=== PATIENT | male | born 1985 | race Caucasian/White ===

== ENCOUNTER 2020-02-17 12:52 | Emergency (ER) | payer OTHER ==
[~2020-02-17] VITALS: Ht 177.8 cm; Wt 86.2 kg
[2020-02-17 13:14] VITALS: BP 122/70
--- NOTE | 2020-02-17 13:14 | NUR ---
ED Nurse Note: PT walked in to ED for C/P ABD pain since this morning. Denies any N/V/D.
--- NOTE | 2020-02-17 13:35 | NUR ---
ED Nurse Note: PT taken to CT
[2020-02-17] MEDS ORDERED: Omnipaque-300 100ml vial INJ PRN (13:45)
--- NOTE | 2020-02-17 13:55 | NUR ---
ED Nurse Note: urine and blood sample sent to lab
[2020-02-17 14:12] LABS: BILIRUBIN, URINE NEGATIVE (NEGATIVE); COLOR,URINE PALE YELLOW; GLUCOSE, URINE (UA) NEGATIVE (NEGATIVE); KETONES,URINE 1+ (NEGATIVE); LEUKOCYTE ESTERASE ,URINE NEGATIVE (NEGATIVE); NITRITE,URINE NEGATIVE (NEGATIVE); PH,URINE 7 (4.5-8.0); PROTEIN,URINE NEGATIVE (NEGATIVE); UROBILINOGEN,URINE NORMAL MG/DL (0.0-1.0)
[2020-02-17 14:13] LABS: APPEARANCE,URINE CLEAR
[2020-02-17 14:23] LABS: ANION GAP 14 mmol/L (5-15); BLOOD UREA NITROGEN 15 mg/dL (7-18); CALCIUM 9.5 MG/DL (8.5-10.1); CARBON DIOXIDE 25 MMOL/L (21-32); CHLORIDE 104 MMOL/L (98-107); POTASSIUM 3.5 MMOL/L (3.5-5.1); SODIUM 143 MMOL/L (136-145)
[2020-02-17 14:28] LABS: ALANINE AMINOTRANSFERASE 45 U/L (12-78); ALBUMIN 4.5 G/DL (3.4-5.0); ALBUMIN/GLOBULIN RATIO 1.5 (1.0-2.7); ALKALINE PHOSPHATASE 50 U/L (46-116); ASPARTATE AMINO TRANSFERASE 36 U/L (15-37); CREATINE KINASE 334 U/L (26-308)
[2020-02-17 14:37] LABS: HEMATOCRIT 41.7 % (42.0-52.0); HEMOGLOBIN 15.5 G/DL (14.2-18.0); MEAN CORPUSCULAR VOLUME 88 FL (80-99); PLATELET COUNT 324 K/UL (150-450); RED BLOOD COUNT 4.75 M/UL (4.70-6.10); WHITE BLOOD COUNT 14.6 K/UL (4.8-10.8)
--- NOTE | 2020-02-17 14:50 | NUR ---
ED Nurse Note: back from CT
--- NOTE | 2020-02-17 15:38 | Diagnostic Imaging Report ---
Clinical Indication: Abdominal pain since this morning Technique: No oral contrast utilized, per emergency room physician request IV administration nonionic contrast. Venous phase spiral acquisition obtained through the abdomen and pelvis. Multiplanar reconstructions were generated. Total dose length product 258 mGycm. CTDIvol(s) 5 mGy. Dose reduction achieved using automated exposure control Comparison: none Findings: Lack of enteric contrast limits assessment of the GI tract. Lack of body fat also limits inherent soft tissue contrast. There is a suggestion of a mildly enlarged appendix posterior to the cecum and immediately up against it. No extraluminal gas or fluid demonstrated. This is best appreciated on images 54 through 62 of series 4, particularly on image 56 The distal esophagus, stomach, duodenum are unremarkable. No small bowel distention. No free or loculated intraperitoneal gas or fluid is evident. No evidence of colonic diverticulosis or diverticulitis. The liver, gallbladder, bile ducts, pancreas, spleen, adrenals, kidneys are all unremarkable. No pelvic mass or adenopathy. No retroperitoneal or mesenteric mass or adenopathy. 2 calcifications versus dense material and bowel are seen in the right side of the pelvis. Included lung bases are clear. The bones are unremarkable. Impression: Equivocal mildly enlarged appendix, not well-demonstrated, could indicate early appendicitis. Correlate with clinical findings. No other acute or significant abnormality demonstrated. Findings discussed by phone with nurse practitioner Julia in the emergency room at the time of interpretation. The CT scanner at [facility] is accredited by the [employer] and the scans are performed using protocols designed to limit radiation exposure to as low as reasonably achievable to attain images of sufficient resolution adequate for diagnostic evaluation.
--- NOTE | 2020-02-17 15:43 | Emergency Room Report ---
History of Present Illness General Chief Complaint: Abdominal Pain Source: Patient Present Illness HPI 34-year-old male with no significant past medical history, non-smoker, no drug use, and nonalcoholic here complaining of sudden onset of mid to right lower quadrant abdominal pain that started this morning. At this time he rates it 7 out of 10 and intermittent. Denies any radiation. Denies any diffuse abdominal pain, nausea vomiting, diarrhea, constipation, fever and chills, chest pain shortness of breath. 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 Allergies: Coded Allergies: No Known Allergies (Unverified , 02/17/20) COVID-19 Screening Contact w/high risk pt: No Recent Travel to affected area: No Experienced COVID-19 symptoms?: No Patient History Past Medical History: see triage record Past Surgical History: none Pertinent Family History: none Immunizations: UTD Reviewed Nursing Documentation: PMH: Agreed; PSxH: Agreed Nursing Documentation-PMH Hx Asthma: Yes Review of Systems All Other Systems: negative except mentioned in HPI Physical Exam Vital Signs Date Time Temp Pulse Resp B/P (MAP) Pulse Ox O2 Delivery O2 Flow Rate FiO2 02/17/20 13:07 98.1 86 19 131/76 (94) 96 Room Air Sp02 EP Interpretation: reviewed, normal General Appearance: no apparent distress, alert, GCS 15, non-toxic Head: normocephalic, atraumatic Eyes: bilateral eye normal inspection, bilateral eye PERRL ENT: hearing grossly normal, normal pharynx, no angioedema, normal voice Neck: full range of motion, supple/symm/no masses Respiratory: chest non-tender, lungs clear, normal breath sounds, no rhonchi, no retraction, speaking full sentences Cardiovascular #1: regular rate, rhythm, no edema, no murmur Gastrointestinal: non tender, soft, no mass, no bruit, non-distended, no guarding Rectal: deferred Genitourinary: no CVA tenderness Musculoskeletal: back normal Neurologic: alert, motor strength/tone normal, oriented x3, sensory intact, responsive, speech normal Psychiatric: judgement/insight normal, memory normal, mood/affect normal, no suicidal/homicidal ideation Skin: no rash Lymphatic: no adenopathy Medical Decision Making PA Attestation All diagnoses and treatment plans were reviewed and discussed with my supervising physician Dr. Carcamo Diagnostic Impression: Primary Impression: Appendicitis Additional Impression: Left against medical advice ER Course 34-year-old male with no significant past medical history, non-smoker, no drug use, and nonalcoholic here complaining of sudden onset of mid to right lower quadrant abdominal pain that started this morning. At this time he rates it 7 out of 10 and intermittent. Denies any radiation. Denies any diffuse abdominal pain, nausea vomiting, diarrhea, constipation, fever and chills, chest pain shortness of breath. 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 Ddx considered but are not limited to: appendicitis, cholecystis, gastritis, gastroenteritis, UTI, pyelonephritis, SBO, diverticulitis, influenza with GI manifestation, Vital signs: are WNL, pt. is afebrile H&PE are most consistent with: Appendicitis ORDERS: abdominal CT, abdominal pain set, ED INTERVENTIONS: Zosyn, NS bolus, Patient was to be admitted however patient decided to sign AGAINST MEDICAL ADVICE and go to [facility] for admission and surgery. Patient agreed for antibiotic treatment. Reported that he understands the risk of possible rupture however will drive himself immediately to [facility]. Patient has full judgment upon signing AGAINST MEDICAL ADVICE and understands all risks. CT/MRI/US Diagnostic Results CT/MRI/US Diagnostic Results : Imaging Test Ordered: CT abd pelvis with contrast Impression Early appendicitis noted Last Vital Signs Date Time Temp Pulse Resp B/P (MAP) Pulse Ox O2 Delivery O2 Flow Rate FiO2 02/17/20 13:14 98.1 80 16 122/70 96 Room Air Disposition: HOME, SELF-CARE Condition: Stable Referrals: NON PHYSICIAN (PCP) Additional Instructions: Patient to be admitted operated however patient signed AGAINST MEDICAL ADVICE to drive himself to [facility]. Patient understands the risks of signing AGAINST MEDICAL ADVICE. Patient stable, afebrile, and in no apparent distress at time of discharge. Fidelia Zuniga February 17, 2020 15:43
[2020-02-17] MEDS ORDERED: Piperacillin/Tazobactam 3.375 GM in NS 110 ML IVPB ONE (15:45)
[2020-02-17 16:15] VITALS: BP 119/69
--- NOTE | 2020-02-17 16:15 | NUR ---
ED Nurse Note: Patient AMA. Stated that he feels better and will go to [facility] because his Doctors and his medical records are there. AMA form signed. ID band and IV line removed. Pt alert and orientedx4, verbally responsive. Pt left with all his belongings.
== END 2020-02-17 16:15 | disposition home or self-care (01) ==
LOC: EMR 13:07
DX: K37 Unspecified appendicitis (principal)
CPT/HCPCS: 36415; 74177; 80053; 80307; 81003; 82550; 83690; 85007; 85025; 96365; 99284; J2543; Q9967